=== PATIENT | female | born 1990 | race Caucasian/White ===

== ENCOUNTER 2023-12-27 17:14 | Emergency (ER) | payer MEDICAID ==
[~2023-12-27] VITALS: Ht 162.6 cm; Wt 141.0 kg
[2023-12-27 17:50] VITALS: O2SAT 97
[2023-12-27] MEDS ORDERED: CEFTRIAXONE SODIUM 500MG VIAL IM ONE (19:00)
[2023-12-27] MEDS ORDERED: DOXYCYCLINE HYCLATE 100MG CAPSULE PO ONE (19:00)
[2023-12-27] MEDS ORDERED: CIPR2.5D20 EACHEYE (20:32)
[2023-12-27] MEDS ORDERED: DOXY100C5 MT (20:32)
[2023-12-27] MEDS: CIPROFLOXACIN 0.3% OPHTH SOLN 2.5ML BOTHEYE ONE (22:10)
[2023-12-27] MEDS: DOXYCYCLINE HYCLATE 100MG CAPSULE PO NR (22:10)
[2023-12-27 22:35] VITALS: BP 162/110; PULSE 70; RESP 16; TEMP 97.4
[2023-12-27] MEDS: CEFTRIAXONE SODIUM 500MG VIAL IM NR (22:35)
== END 2023-12-27 22:40 | disposition home or self-care (01) ==
LOC: ER 17:14
DX: H10.9 Unspecified conjunctivitis (principal)
CPT/HCPCS: 99283; 96372; J0696